=== PATIENT | female | born 1955 | race Caucasian/White ===

== ENCOUNTER → 2019-01-11 | Outpatient (CLI) | payer OTHER ==
--- NOTE | 2019-01-11 12:07 | RAD ---
EXAM DESCRIPTION: Pelvis CLINICAL HISTORY: 63 years Female, HIP PAIN COMPARISON: None. TECHNIQUE: AP radiograph of the pelvis was performed. FINDINGS: The pelvic ring appears grossly intact on this single AP radiograph. No acute fracture or dislocation. Bilateral sacroiliac joints appear normal. Mild bilateral hip osteoarthritis. Changes of osteitis pubis. The visualized lumbo-sacral spine demonstrates mild degenerative changes. IMPRESSION: Single AP radiograph of the pelvis demonstrates grossly intact pelvic ring. Mild bilateral hip osteoarthritis. Changes of osteitis pubis. Electronically signed by: Praveena Avalos MD 01/11/2019 12:05 PM [facility]
--- NOTE | 2019-01-11 12:08 | RAD ---
EXAM DESCRIPTION: Knee,Right Complete CLINICAL HISTORY: 63 years Female, KNEE PAIN TECHNIQUE: 4 views of the right knee were performed. COMPARISON: None available. FINDINGS: The visualized bones appear well mineralized. No acute fracture or dislocation. 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 Tiny suprapatellar joint effusion. The soft tissues appear grossly unremarkable. 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 Tiny suprapatellar joint effusion. Electronically signed by: Praveena Avalos MD 01/11/2019 12:06 PM [facility]
== END | disposition home or self-care (01) ==
LOC: RAD 09:52
PROVIDERS: ATTEND Orthopaedic Surgery
DX: M25.561 Pain in right knee (principal); M25.551 Pain in right hip